=== PATIENT | female | born 1975 | race Caucasian/White ===

== ENCOUNTER 2018-06-18 09:48 | Emergency (ER) | payer BC ==
[2018-06-18 09:48] VITALS: BMI 21.6
--- NOTE | 2018-06-18 10:10 | ED PDOC ---
Arrival/HPI - General Chief Complaint: Chest Pain Time Seen by Provider: 06/18/18 10:03 Historian: Patient - History of Present Illness Narrative History of Present Illness (Text): 06/18/18 10:03 43 y/o female, pmh including HLD on diet control, nonsmoker, not on control or hormonal therapy, no recent long distance travel or surgery for the past 3 months, patrol police sergeant, c/o lt. sided chest pain started this morning around 7am after she woke up and standing there to cook the pancake for her son. Pt. stated that sleep on the lateral decubitus and not sure if she slept wrong. She woke up this morning with lt. sided chest pain, aggravated by lt. shoulder movement and palpating on the lt. anterior pectoralis major muscle region, no fall or trauma, no coughing, no fever or chills, no hemoptysis, no pain medication taken at home, no other medical or psychological complaints. Past Medical History - Provider Review Nursing Documentation Reviewed: Yes - Tetanus Immunization Tetanus Immunization: Unknown - Past Medical History Past Medical History: No Previous - Cardiac Hx Cardiac Disorders: No - Pulmonary Hx Respiratory Disorders: No - Neurological Hx Neurological Disorder: No - HEENT Hx HEENT Disorder: No - Renal Hx Renal Disorder: No - Endocrine/Metabolic Hx Endocrine Disorders: No - Hematological/Oncological Hx Blood Disorders: No - Integumentary Hx Dermatological Disorder: No - Musculoskeletal/Rheumatological Hx Falls: No - Gastrointestinal Hx Gastrointestinal Disorders: Yes Hx Diarrhea: Yes - Genitourinary/Gynecological Hx Genitourinary Disorders: Yes Other/Comment: IRREGULAR MENSES - Psychiatric Hx Psychophysiologic Disorder: No Hx Substance Use: No - Past Surgical History Past Surgical History: No Previous - Suicidal Assessment Feels Threatened In Home Enviroment: No Family/Social History - Physician Review Nursing Documentation Reviewed: Yes Family/Social History: Unknown Family HX Smoking Status: Never Smoked Hx Alcohol Use: No Hx Substance Use: No Hx Substance Use Treatment: No Allergies/Home Meds Allergies/Adverse Reactions: Allergies No Known Allergies Allergy (Verified 06/18/18 09:54) Review of Systems - Review of Systems Constitutional: absent: Fatigue, Fevers Eyes: absent: Vision Changes ENT: absent: Hearing Changes Respiratory: absent: SOB, Cough Cardiovascular: Chest Pain Gastrointestinal: absent: Abdominal Pain, Diarrhea, Nausea, Vomiting Musculoskeletal: Myalgias. absent: Arthralgias, Back Pain Skin: absent: Rash, Pruritis Neurological: absent: Headache, Dizziness Psychiatric: absent: Anxiety, Depression Physical Exam Vital Signs Pulse Pulse Resp BP BP Pulse Ox 06/18/18 10:23 87 108/79 06/18/18 10:22 79 17 108/79 100 Pain Distress: Moderate Mental Status: Positive for: Alert and Oriented X 3 - Systems Exam Head: Present: Atraumatic, Normocephalic Pupils: Present: PERRL Extroacular Muscles: Present: EOMI Conjunctiva: Present: Normal Mouth: Present: Moist Mucous Membranes Neck: Present: Normal Range of Motion Respiratory/Chest: Present: Clear to Auscultation, Good Air Exchange, Other ( pain is 100 percent reproducible by palpating the lt. anterior pectoralis muscle region with no bony tenderness, pain is 100% reproducible by lt. shoulder movement. ). No: Respiratory Distress, Accessory Muscle Use, Wheezes, Decreased Breath Sounds, Rales, Retracting, Rhonchi, Tachypneic Cardiovascular: Present: Regular Rate and Rhythm, Normal S1, S2. No: Murmurs Abdomen: No: Tenderness, Distention, Peritoneal Signs, Rebound, Guarding Back: Present: Normal Inspection Upper Extremity: Present: Normal Inspection. No: Cyanosis, Edema Lower Extremity: Present: Normal Inspection. No: Edema Neurological: Present: GCS=15, CN II-XII Intact, Speech Normal Skin: Present: Warm, Dry, Normal Color. No: Rashes Psychiatric: Present: Alert, Oriented x 3, Normal Insight, Normal Concentration Medical Decision Making ED Course and Treatment: 06/18/18 10:15 Differential: VT/STEMI vs. Muscular skeletal muscle pain vs. pneumothorax vs. pneumonia -labs -chest xray -ekg -IV torado/fluid -oxygen 2L -court monitor -Observe and reassess 06/18/18 12:58 -Urine hcg is negative. -Based on the PERC criteria, 0 criteria, No need for further workup. -HEART score is 1, low risk -EKG: NSR @ 69 BPM, no ST elevation or depression, no T wave inversion. -Chest xray show no active disease -Labs show no acute findings -Cardiac enzyme 1st set is negative -UA show no UTI -Pt. received toradol and still having pain with not much improve, will continue to observe with d-dimer added 06/18/18 14:17 -Dimer is negative, pepcid added for the patient to see if it would further relief the pain. -2nd set of troponin ordered and just drawn. 06/18/18 15:03 -2ns set of trop is negative, chest pain resolved, all labs/radiology results discussed, awared she would be off duty and needs eeler clearance prior to return to work. -I spoke to Dr. Manzano, discussed about the case/labs/radiology result and agreed he would follow up with her in 2 days outpatient. -Discharge home with naproxen, pepcid, bed rest, avoid caffeine and activities, follow up with your own pmd and eeler within 2 days, return to the ER for any new or worsening signs or symptoms. Please get a full cardiology evaluation before return to work. - Lab Interpretations Lab Results: 06/18/18 10:14 06/18/18 10:14 Lab Results 06/18/18 14:20: Lactate Dehydrogenase 421, Total Creatine Kinase 100, Troponin I < 0.01 06/18/18 10:32: Urine Color Yellow, Urine Appearance Clear, Urine pH 6.0, Ur Specific [place] 1.025, Urine Protein Negative, Urine Glucose (UA) Negative, Urine Ketones Negative, Urine Blood Negative, Urine Nitrate Negative, Urine Bilirubin Negative, Urine Urobilinogen 0.2, Ur Leukocyte Esterase Negative 06/18/18 10:14: D-Dimer, Quantitative < 200 06/18/18 10:14: WBC 6.3 D, RBC 4.26, Hgb 12.2, Hct 36.3, MCV 85.2, MCH 28.6, MCHC 33.6, RDW 13.4, Plt Count 297, MPV 8.5, Gran % 64.2, Lymph % (Auto) 30.1, Barron % (Auto) 4.7, Eos % (Auto) 0.8 L, Baso % (Auto) 0.2, Gran # 4.06, Lymph # ( Auto) 1.9, Barron # (Auto) 0.3, Eos # (Auto) 0.1, Baso # (Auto) 0.01 06/18/18 10:14: Sodium 142, Potassium 4.0, Chloride 105, Carbon Dioxide 27, Anion Gap 15, BUN 14, Creatinine 0.6 L, Est GFR ( Amer) > 60, Est GFR ( Non-Af Amer) > 60, Random Glucose 92, Calcium 9.6, Magnesium 2.1, Total Bilirubin 0.6, AST 23, ALT 23, Alkaline Phosphatase 68, Lactate Dehydrogenase 379, Total Creatine Kinase 91, Troponin I < 0.01, Total Protein 8.3, Albumin 4.7 , Globulin 3.5, Albumin/Globulin Ratio 1.3 I have reviewed the lab results: Yes - RAD Interpretation Radiology Orders: 06/18/18 10:12 CHEST TWO VIEWS (PA/LAT) [RAD] Stat Date of service: 06/18/2018 HISTORY: lt. sided chest pain COMPARISON: 12/22/2014 TECHNIQUE: Chest PA and lateral FINDINGS: LUNGS: No active pulmonary disease. PLEURA: No significant pleural effusion identified. No pneumothorax apparent. CARDIOVASCULAR: Normal. OSSEOUS STRUCTURES: No significant abnormalities. VISUALIZED UPPER ABDOMEN: Normal. OTHER FINDINGS: None. IMPRESSION: No active disease. Pyrometallurgical Engineer: Radiologist - Medication Orders Current Medication Orders: Sodium Chloride (Sodium Chloride 0.9%) 1,000 mls @ 100 mls/hr IV .Q10H [facility] Last Admin: 06/18/18 10:42 Dose: 100 mls/hr eMAR Start Stop Document 06/18/18 10:42 MR (Rec: 06/18/18 10:42 [id number]) Intravenous Solution Start Date 06/18/18 Start Time 10:42 Discontinued Medications Famotidine (Pepcid) 20 mg IVP STAT STA Stop: 06/18/18 13:32 Last Admin: 06/18/18 14:23 Dose: 20 mg IVP Administration Document 06/18/18 14:23 MR (Rec: 06/18/18 14:23 [id number]) Charges for Administration # of IVP Administrations 1 Ketorolac Tromethamine (Toradol) 30 mg IVP STAT STA Stop: 06/18/18 10:13 Last Admin: 06/18/18 10:42 Dose: 30 mg MAR Pain Assessment Document 06/18/18 10:42 MR (Rec: 06/18/18 10:43 [id number]) Pain Reassessment Is this a pain reassessment? Yes Sleep Is patient sleeping during reassessment? No Presence of Pain Presence of Pain Yes Pain Scale Used Pain Scale Used Numeric Location Pain Location Body Site Chest Description Description Constant Intensity of Pain at present 6 Aggravating Factors Changing Position IVP Administration Document 06/18/18 10:42 MR (Rec: 06/18/18 10:43 MR [id number]) Charges for Administration # of IVP Administrations 1 - PA / ELECTRICAL ELECTRONICS ENGINEER / Resident Statement MD/DO has reviewed & agrees with the documentation as recorded. Disposition/Present on Arrival - Present on Arrival Any Indicators Present on Arrival: No History of DVT/PE: No History of Uncontrolled Diabetes: No Urinary Catheter: No History of Decub. Ulcer: No History Surgical Site Infection Following: None - Disposition Have Diagnosis and Disposition been Completed?: Yes Diagnosis: Atypical chest pain Disposition: HOME/ ROUTINE Disposition Time: 12:59 Patient Plan: Discharge Condition: GOOD Discharge Instructions (ExitCare): Chest Pain (ED) Additional Instructions: -Discharge home with naproxen, pepcid, bed rest, avoid caffeine and activities, follow up with your own pmd and eeler within 2 days, return to the ER for any new or worsening signs or symptoms. Please get a full cardiology evaluation before return to work. Prescriptions: Famotidine [Pepcid] 20 mg PO BID #20 tab Naproxen 500 mg PO BID PRN #20 tablet PRN Reason: Other Referrals: Hari Nava MD [Staff Provider] - Follow up with primary Inder Chavez MD [Staff Provider] - Follow up with primary Forms: [employer] ([place]olan), WORK NOTE
[2018-06-18] MEDS ORDERED: Sodium Chloride 0.9% 1,000 ML IV SCH (10:15)
[2018-06-18 10:22] LABS: BASO # 0.01 K/mm3 (0.0-2.0); BASO % 0.2 % (0.0-3.0); EOS # 0.1 (0.0-0.7); EOS % 0.8 % (1.5-5.0); GRAN # 4.06 (1.4-6.5); GRAN % 64.2 % (50.0-68.0); HEMOGLOBIN 12.2 g/dL (12.0-16.0); LYMPH # 1.9 (1.2-3.4); LYMPH % 30.1 % (22.0-35.0); MEAN CELL VOLUME 85.2 fl (80.0-105.0); MEAN CORPUSCULAR HEMOGLOBIN 28.6 pg (25.0-35.0); MEAN CORPUSCULAR HGB CONC 33.6 g/dl (31.0-37.0); MEAN PLATELET VOLUME 8.5 fl (7.0-11.0); MONO # 0.3 (0.1-0.6); MONO % 4.7 % (1.0-6.0); RBC 4.26 10^6/uL (3.5-6.1); RED CELL DISTRIBUTION WIDTH 13.4 % (11.5-14.5); WHITE BLOOD COUNT 6.3 10^3/ul (4.5-11.0)
[2018-06-18 10:23] VITALS: O2SAT 100
[2018-06-18 10:31] LABS: ALB/GLOB RATIO 1.3 (1.1-1.8); ALBUMIN 4.7 g/dL (3.0-4.8); ALT/SGPT 23 U/L (7-56); AST/SGOT 23 U/L (14-36); BLOOD UREA NITROGEN 14 mg/dL (7-21); CALCIUM 9.6 mg/dL (8.4-10.5); GFR AFRICAN-AMERICAN > 60; GFR NON-AFRICAN AMERICAN > 60
[2018-06-18 10:42] LABS: TROPONIN I < 0.01 ng/mL
[2018-06-18 10:56] LABS: URINE BILIRUBIN NEGATIVE (NEGATIVE); URINE BLOOD NEGATIVE (NEGATIVE); URINE GLUCOSE (UA) NEGATIVE (NEGATIVE); URINE LEUKOCYTE ESTERASE NEGATIVE Leu/uL (NEGATIVE); URINE PROTEIN NEGATIVE mg/dL (<30 mg/dL); URINE UROBILINOGEN 0.2 E.U./dL (<1 E.U./dL)
[2018-06-18 10:57] LABS: URINE APPEARANCE CLEAR (CLEAR); URINE COLOR YELLOW (YELLOW)
--- NOTE | 2018-06-18 13:35 | RAD ---
Date of service: 06/18/2018 HISTORY: lt. sided chest pain COMPARISON: 12/22/2014 TECHNIQUE: Chest PA and lateral FINDINGS: LUNGS: No active pulmonary disease. PLEURA: No significant pleural effusion identified. No pneumothorax apparent. CARDIOVASCULAR: Normal. OSSEOUS STRUCTURES: No significant abnormalities. VISUALIZED UPPER ABDOMEN: Normal. OTHER FINDINGS: None. IMPRESSION: No active disease.
[2018-06-18 14:49] LABS: TROPONIN I < 0.01 ng/mL
[2018-06-18 15:42] VITALS: BP 99/70; PULSE 68; RESP 16; TEMP 97.9
--- NOTE | 2018-06-18 17:32 | CARD ---
APPROVED REPORT Date of service: 06/18/2018 EKG Measurement Heart [id number] <Conclusion> Normal sinus rhythm Normal ECG
== END 2018-06-18 15:48 | disposition home or self-care (01) ==
LOC: ED 09:48
DX: R07.89 Other chest pain (principal)
CPT/HCPCS: 71046; 80053; 81003; 82550; 83615; 83735; 84484; 85025; 85378; 93005; 96374; 96375; 99284; J1885; J7030